=== PATIENT | female | born 1985 | race Caucasian/White ===

== ENCOUNTER 2016-10-30 10:30 | Emergency (ER) | payer BC ==
[2016-10-30 10:59] VITALS: BP 146/83
[2016-10-30] MEDS ORDERED: KETOROLAC TROMETHAMINE 30 MG/ML VIAL IM ONE (11:13)
[2016-10-30] MEDS ORDERED: CYCLOBENZAPRINE HCL 10 MG TABLET PO ONE (11:14)
--- NOTE | 2016-10-30 11:22 | ERNOTE ---
Back Pain ER HPI Date of Service: 10/30/16 Presenting Symptoms: injury/pain to back Time Seen by Provider: 10/30/16 11:08 Source: patient Exam Limitations: no limitations Immunizations: IMMUNIZATION HX Immunizations Up to Date Yes History of Influenza Vaccine No Hx Pneumococcal Vaccination No Allergies/Adverse Reactions: Allergies No Known Allergies Allergy (Verified 10/30/16 10:57) Home Medications: HOME MEDICATIONS Levothyroxine Sodium [Levoxyl] 75 mcg PO DAILY 08/31/15 [Last Taken 10/30/16] Cyclobenzaprine HCl [Flexeril] 10 mg PO TID PRN #30 tab 10/30/16 [Last Taken Unknown] Naproxen [Naprosyn] 500 mg PO BID PRN #60 tab 10/30/16 [Last Taken Unknown] Narrative: Pt. comes in with c/o B low back pain for 3-4 days. Pt. is unsure when it started exactly but knows she has had it for a while and that it is getting worse. Pt. denies any injury to her back or precipitating symptoms. Pt. denies any prehospital treatment or alleviating factors, but states that movement, bending, lifting, or ambulating worsens. Pt. denies any numbness or tingling. Review of Systems - Review of Systems Constitutional: Present: no symptoms reported. Absent: recent illness, fever, chills, malaise EYE: Present: no symptoms reported ENT: Present: no symptoms reported Respiratory: Present: no symptoms reported. Absent: shortness of breath, cough , wheezing Cardiology: Present: no symptoms reported. Absent: chest pain, palpitations, edema Gastrointestinal/Abdominal: Present: no symptoms reported Genitourinary: Present: no symptoms reported Musculoskeletal: Present: back pain - B low back Skin: Present: no symptoms reported Neurological: Present: no symptoms reported. Absent: headache, dizziness/light- headedness, numbness, tingling All Other Systems: All systems neg except as marked - Patient's Past Medical History Patient History - Medical: Hypothyroidism Patient History - Cardiac/Respiratory: No pertinent hx Patient History - Cancer: No Hx of Cancer Patient History - Surgical Procedures: No surgical history - Family History Mother Family History - Cardiac/Respiratory: Asthma Father Family History - Medical: No pertinent hx - Social History Living Situations: home Smoking Status: Current every day smoker Have you smoked in the past 12 months: Yes Do you dip or chew tobacco: No Alcohol Use: none Drug Use: none Physical Exam - Physical Exam General Appearance: Present: wd/wn, alert, no apparent distress Eye Exam: Normal inspection: bilateral, PERRL: bilateral, EOMI: bilateral Neck: Present: normal inspection, nontender. 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 Absent: pallor, skin rash ED Progress - Results and Orders Patient's Lab Results:: I have reviewed the patient's lab results. - Vital Signs Patient's Vital Signs:: I have reviewed the patient's vital signs. Vital Signs: Vital Signs 10/30/16 10/30/16 10:54 10:58 Pulse Rate 107 H 100 Respiratory 16 Rate Blood Pressure 145/92 146/83 O2 Sat by Pulse 100 Oximetry - X-Ray X-Ray #1 X-Ray: thoracic Interpretation: Reviewed by me X-ray Comments: IMPRESSION: NO SIGNIFICANT OSSEOUS PATHOLOGY IDENTIFIED. X-Ray #2 X-Ray: lumbosacral Interpretation: Reviewed by me X-ray Comments: Aplastic ribs at T 12 with no other ossious abnormality - Progress/Reassessment Chief Complaint: Back Pain Departure Clinical Impression: Muscle strain - Departure Disposition: Home self-care Condition: Good Instructions: Thoracic Strain, [id number] Additional Instructions: Please follow up with primary provider or a chiropractor for further treatment of chronic aplastic ribs. Referrals: Jefferson Ash MD [Primary Care Provider] - Prescriptions: Cyclobenzaprine HCl [Flexeril] 10 mg PO TID PRN #30 tab PRN Reason: MUSCLE SPASMS Naproxen [Naprosyn] 500 mg PO BID PRN #60 tab PRN Reason: Pain
[2016-10-30] MEDS ORDERED: KETOROLAC TROMETHAMINE 30 MG/ML VIAL ONE (11:27)
[2016-10-30] MEDS ORDERED: CYCLOBENZAPRINE HCL 10 MG TABLET ONE (11:27)
[2016-10-30 11:46] LABS: Urine Bilirubin Negative (NEGATIVE); Urine Ketone Negative (NEGATIVE); Urine Nitrite Negative (NEGATIVE); Urine Protein Negative (NEGATIVE); Urine Urobilinogen Normal (NORMAL)
[2016-10-30 11:55] LABS: Urine Appearance Clear; Urine Bacteria None Seen; Urine Blood 10 /ul (NEGATIVE); Urine Color Yellow; Urine RBC 0-5 /hpf (0-5); Urine WBC None Seen /hpf (0-5)
== END 2016-10-30 12:46 | disposition home or self-care (01) ==
LOC: ER 10:30
DX: S39.012A Strain of muscle, fascia and tendon of lower back, initial encounter (principal); F17.210 Nicotine dependence, cigarettes, uncomplicated; E03.9 Hypothyroidism, unspecified

== ENCOUNTER 2017-11-30 22:39 | Emergency (ER) | payer BC ==
[2017-11-30] MEDS ORDERED: ACETAMINOPHEN 500 MG TABLET PO ONE (22:56)
[2017-12-01] MEDS ORDERED: NORMAL SALINE 1,000 ML IV ONE (01:01)
--- NOTE | 2017-12-01 01:08 | ERNOTE ---
Lower Extremity HPI - Narrative Date of Service: 12/01/17 - General Lower Extremities Pain: leg: left Time Seen by Provider: 12/01/17 00:54 Source: patient Exam Limitations: no limitations - Immun/Allergies/Home Medications Immunizations: IMMUNIZATION HX Immunizations Up to Date Yes History of Influenza Vaccine No Hx Pneumococcal Vaccination No Allergies/Adverse Reactions: Allergies Allergy/AdvReac Type Severity Reaction Status Date / Time No Known Allergies Allergy Verified 11/30/17 22:51 Home Medications: HOME MEDICATIONS Levothyroxine Sodium [Levoxyl] 75 mcg PO DAILY 08/31/15 [Last Taken 10/30/16] - History of Present Illness Narrative: 32 year old that has been feeling weak in her legs since Saturday. Influenza tests done last Saturday in the office was inconclusive for influenza. She has been drinking fluids and eating solids. Denies any fevers, chills, N/V/D. Denies any neurological deficits and was able to walk from her car to the ED. Date (Duration): 12/01/17 Time (Timing): 00:59 Occurred: last week Location of Incident: home Modifying Factors - (Improves): Reports: other - nothing Modifying Factors - (Worsens): Reports: other - nothing Review of Systems - Review of Systems Constitutional: Present: recent illness EYE: Present: no symptoms reported ENT: Present: no symptoms reported Respiratory: Present: no symptoms reported Cardiology: Present: no symptoms reported Gastrointestinal/Abdominal: Present: no symptoms reported Genitourinary: Present: no symptoms reported Musculoskeletal: Present: See HPI Skin: Present: no symptoms reported Neurological: Present: no symptoms reported Hematologic/Lymphatic: Present: no symptoms reported Psych: Present: no symptoms reported - Patient's Past Medical History Patient History - Medical: Hypothyroidism Patient History - Cardiac/Respiratory: No pertinent hx Patient History - Cancer: No Hx of Cancer Patient History - Surgical Procedures: No surgical history Patient History - Other: None - Family History Mother Family History - Cardiac/Respiratory: Asthma Father Family History - Medical: No pertinent hx - Social History Living Situations: spouse Abuse History: No History of abuse Psych History: No pertinent hx Smoking Status: Current every day smoker Have you smoked in the past 12 months: Yes Do you dip or chew tobacco: No Alcohol Use: rarely Drug Use: none - Immunizations Immunizations Up to Date: Yes Hx Pneumococcal Vaccination: No History of Influenza Vaccine: No Physical Exam - Physical Exam General Appearance: Present: no apparent distress Head Exam: Present: normal inspection Eye Exam: Normal inspection: bilateral Ears, Nose, Throat: Present: normal ENT inspection Neck: Present: normal inspection, nontender, supple Respiratory: Present: no respiratory distress Gastrointestinal/Abdominal: Present: nondistended Back Exam: Present: normal inspection Extremity Exam: Present: normal inspection Neurological Exam: Present: alert, oriented, normal mood/affect, 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 - Vital Signs Patient's Vital Signs:: I have reviewed the patient's vital signs. Vital Signs: Vital Signs 11/30/17 12/01/17 22:42 00:09 Temperature 37.4 C Pulse Rate 97 86 Respiratory 22 H 18 Rate Blood Pressure 159/88 154/86 O2 Sat by Pulse 100 99 Oximetry - Progress/Reassessment Chief Complaint: Lower Extremity Pain/ Injury Progress:: Improved Progress Note-Subjective: 12/01/17 01:02 When orthostatic blood pressures and pulse was done she felt weaker with standing. 12/01/17 02:32 Feels better since getting IV fluids. She also mentioned that she has not slept since 0430 hours yesterday. 12/01/17 02:36 Was present in the urine, she is not on her period at this time. Denies any dysuria or urinary frequency. Just to the patient that she have a urinalysis repeated in a week or Two. Departure Clinical Impression: Orthostatic hypotension, Dehydration - Departure Disposition: Home self-care Condition: Good Instructions: Dehydration, Adult, [id number] Print Language: Maltese Additional Instructions: Follow up with your primary care physician next week as needed. Drink 1 liter of Gatorade in the next 24 hours.
[2017-12-01 01:10] LABS: Hematocrit 40.8 % (37.0-47.0); Mean Cell Volume 88.1 fl (78-100); Mean Corpuscular Hemoglobin 30.2 pg (27-31); Mean Corpuscular Hgb Conc 34.3 g/dl (32-36); Mean Platelet Volume 9.8 fl (6.0-9.5); Neutrophil # 7.2 K/mm3 (1.3-6.0); Neutrophil % 59.4 % (42-75.0); Platelet Count 265 K/mm3 (150-450); Red Blood Count 4.63 M/mm3 (4.2-5.4); Red Cell Distribution Width 11.9 % (11.5-14.0); White Blood Count 12.1 K/mm3 (4.0-10.5)
[2017-12-01 01:18] LABS: Anion Gap 13.3 mmol/L (6.8-13.8); BUN/Creatinine Ratio 8.7 (9.0-21.6); Calcium * 8.9 mg/dL (7.9-10.9); Carbon Dioxide 29.6 mmol/L (24-32.6); Estimated Creat Clear 98.6; Potassium 3.9 mmol/L (3.4-4.6)
[2017-12-01 02:01] LABS: Urine Bilirubin Negative (NEGATIVE); Urine Blood 25 /ul (NEGATIVE); Urine Ketone Negative (NEGATIVE); Urine Nitrite Negative (NEGATIVE); Urine Protein Negative (NEGATIVE); Urine Specific Gravity 1.015 SP.GR. (1.005-1.010); Urine Urobilinogen Normal (NORMAL)
[2017-12-01 02:12] LABS: Urine Appearance Clear; Urine Bacteria 1+; Urine Color Dark Yellow; Urine RBC None Seen /hpf (0-5); Urine WBC None Seen /hpf (0-5)
[2017-12-01 02:13] LABS: Urine Mucus TRACE
[2017-12-01 02:45] VITALS: BP 148/86
== END 2017-12-01 02:35 | disposition home or self-care (01) ==
LOC: ER 22:39
DX: I95.1 Orthostatic hypotension (principal); E86.0 Dehydration; F17.200 Nicotine dependence, unspecified, uncomplicated